=== PATIENT | female | born 1970 | race Two or more races ===

== ENCOUNTER 2018-08-27 19:37 | Emergency (ER) | payer MEDICAID, OTHER ==
--- NOTE | 2018-08-27 20:19 | EDPHY ---
General Time Seen by Provider: 08/27/18 19:59 Narrative: CLINICAL IMPRESSION: Elevated blood pressure without a diagnosis of hypertension ASSESSMENT/PLAN: 48-year-old otherwise healthy female presents to the emergency department with 3 separate elevated blood pressure readings today at a friend's house. Patient has no headache, dizziness, nausea, vomiting, chest pain, shortness of breath, or vision changes. She has never been diagnosed with hypertension in the past. EKG is reassuring with normal sinus rhythm, no acute ST or T-wave changes, reviewed with Dr. Arboleda. Lab work shows a mild renal insufficiency with a creatinine of 1.2 although unclear if this is patient's baseline or secondary to dehydration. Patient does have a half brother with renal failure status post renal transplant. I did recommend strongly that she keep a blood pressure log, follow up with her primary care in the next 24-48 hours to consider hypertensive treatments, however patient does not have clinical concerns for hypertensive urgency or emergency requiring initiation of therapy tonight. Case reviewed with Dr. Arboleda. Patient is comfortable with discharge plan. Warning signs return to ER sooner outlined and discharge. DIFFERENTIAL DX: Differential includes but not limited to hypertension, cardiac arrhythmia, renal insufficiency, renal failure, electrolyte imbalance, situational stress. ED PROCEDURES: See lab and/or imaging results below ED COURSE: Patient seen and evaluated by myself. Plan for EKG and labs. For plan to follow-up with [facility] for blood pressure management. Patient does not present with a hypertensive emergency. 8:55 P.M.: EKG reviewed with Dr. Arboleda. Normal sinus rhythm, no acute ST or T-wave changes, LVH or other abnormality to suggest changes from hypertensive emergency. Patient has mild renal insufficiency with creatinine of 1.2. Remainder of lab work reassuring. No complaints of chest pain or shortness of breath. Will plan to have her follow up with primary care. CHIEF COMPLAINT: High blood pressure HPI: 48-year-old [facility] female presents to the emergency department today with complaints of elevated blood pressure readings today on 3 separate occasions. Patient reports taking her blood pressure 3 times at a friend's house and then again at [facility] where she got readings as high as 170 systolic. Patient reports no history of hypertension. She reports she has had some increased stress recently. She was taking her Symbicort more often than normal yesterday for asthma. She reports a family history of a half brother who had renal failure requiring a kidney transplant at age 28. He is now on dialysis. She reports he did have high blood pressure at a young age. There is no other family history of cardiac disease at a young age however all of her family members have hypertension. She is followed by [facility]. She has no complaints of chest pain, shortness of breath, headache, dizziness, lightheadedness, acute vision or hearing changes. PAST MEDICAL HISTORY: Asthma See nurse/triage notes for additional history if applicable Pertinent Past Surgical History: None reported Family History: Half brother with renal failure, on dialysis, post failed kidney transplant Social History: Nonsmoker, otherwise healthy REVIEW OF SYSTEMS: All other systems negative Constitutional: No fever, no chills, appetite change. Eyes: No discharge, vision change ENT: No sore throat, congestion, ear pain. Cardiovascular: No chest pain, no palpitations. Respiratory: No cough, no shortness of breath. Gastrointestinal: No abdominal pain, no vomiting, diarrhea. Genitourinary: No hematuria, dysuria, flank pain, pelvic pain Musculoskeletal: No back pain, joint swelling, joint pain, myalgias. Skin: No rashes, color change. Neurological: No headache, dizziness, weakness. PHYSICAL EXAM: General Appearance: Alert, oriented, appropriate, cooperative, NAD, well hydrated, non-toxic appearing, hypertensive at 160 systolic, no hypoxia. HEENT: Oropharynx clear is no erythema or exudates, no tonsillar hypertrophy or asymmetry. Dentition without abnormality.] Eyes: PERRLA, no acute vision change, nystagmus, swelling, discharge, pain or photosensitivity. No papilledema. Conjunctiva pink, no pallor or injection Neck: [Supple, nontender, no lymphadenopathy, no midline pain, FROM, no meningismus, Respiratory: There are no retractions, lungs are clear to auscultation. Cardiac: Regular rate and rhythm, no murmurs or gallops. Gastrointestinal: Abdomen is soft, nontender, bowel sounds normal, no masses/ hernia, no rigidity, guarding or focal peritoneal findings. Neurological: Alert and oriented x 3, CN 2-12 grossly intact Skin: Warm, dry, no rashes, no nodules on palpation. Musculoskeletal: Extremities are symmetrical, full range of motion, no tenderness, deformity, swelling, or erythema. MEDICAL DECISION MAKING: Patient was seen independently. Secondary supervising physician at time of evaluation was Dr. Arboleda . Diagnosis: Elevated blood pressure . New, requires workup Summary: See Assessment and Plan for summary of ED visit Clinical lab tests: ordered / reviewed. Independent visualization of images, tracing, or specimens: Yes. Decision to obtain medical records or history from someone other than the patient: No Review / Summarize previous medical records: None available Discussed patient with another provider: Dr. Arboleda Patient Progress: Stable. - History Smoking Status: Never smoked - Objective Vital Signs: Initial Vital Signs Temperature (C) 36.8 C 08/27/18 19:40 Heart Rate 65 08/27/18 19:40 Respiratory Rate 20 08/27/18 19:40 Blood Pressure 175/98 H 08/27/18 19:40 O2 Sat (%) 98 08/27/18 19:40 O2 Delivery Mode Room Air Allergies/Adverse Reactions: No Known Allergies Allergy (Unverified 08/27/18 19:40) Home Medications: Medication Instructions Recorded Albuterol 08/27/18 Symbicort 160-4.5 Mcg Inh (*) 08/27/18 Laboratory Results: Laboratory Results 08/27/18 20:27 08/27/18 20:27 Departure - Departure Disposition: Home, Routine, Self-Care Clinical Impression: Elevated blood pressure reading Condition: Good Instructions: Hypertension (ED) Additional Instructions: DISCHARGE INSTRUCTIONS FROM YOUR DOCTOR Thank you for visiting our emergency department today. Please keep in mind that discharge from the emergency department does not mean that there is nothing wrong - it simply means that we have not identified an emergency condition that requires further evaluation or treatment in the hospital. You should always plan to follow up with primary care for re-evaluation of your condition in the next 2-3 days. If you have been referred to a specialist, please call as soon as possible (today or tomorrow) to schedule your follow up appointment at the appropriate time. PLEASE MAKE A FOLLOW-UP APPOINTMENT WITH HER PRIMARY CARE DOCTOR TOMORROW. YOU DID HAVE ELEVATED BLOOD PRESSURE READINGS TODAY BUT YOU DO NOT HAVE A HYPERTENSIVE EMERGENCY REQUIRING INTERVENTION TONIGHT. EKG WAS REASSURING SHOWING NO CARDIAC ARRHYTHMIA OR CHANGES TO SUGGEST HEART ATTACK. LAB WORK SHOWED VERY MILD ELEVATION IN KIDNEY FUNCTIONS WHICH WE RECOMMEND HAVING RECHECKED BY PRIMARY CARE. OTHERWISE NO ANEMIA, OR ELECTROLYTE IMBALANCE. PLEASE STICK TO A LOW-SALT DIET. CHECK HER BLOOD PRESSURE OUTSIDE OF AN EMERGENCY ROOM OR OFFICE SETTING AND KEEP A LOG FOR HER PRIMARY CARE DOCTOR. PLEASE CALL THEM FOR AN APPOINTMENT TOMORROW. PLEASE RETURN TO THE EMERGENCY DEPARTMENT FOR CHEST PAIN, SHORTNESS OF BREATH, SEVERE HEADACHE, LIGHTHEADEDNESS , DIZZINESS, VOMITING OR ANY OTHER CONCERN. People present with illnesses and injuries in different ways, and it is always possible that we have missed something. You may always return for re-evaluation if symptoms worsen or if they are not improving or if you develop new/different symptoms. Again, thank you for choosing our emergency department. We hope that you feel better. Referrals: NONE *PRIMARY CARE P,. [Primary Care Provider] - As per Instructions [facility],. [Clinic] - 1-2 days without fail
[2018-08-27 20:41] LABS: PLATELET COUNT 319 10^3/uL (150-400)
[2018-08-27 20:43] VITALS: BP 160/106
== END 2018-08-27 21:00 | disposition home or self-care (01) ==
DX: R03.0 Elevated blood-pressure reading, without diagnosis of hypertension (principal)

== ENCOUNTER 2018-08-30 19:31 | Emergency (ER) | payer OTHER ==
[2018-08-30] MEDS ORDERED: LABETALOL HCL 5 MG/ML 20 ML MDV IVP ONE (21:10)
[2018-08-30] MEDS ORDERED: hydrALAZINE 20 MG/ML VIAL IVP ONE ×2 (21:15→22:21)
--- NOTE | 2018-08-30 21:15 | EDPHY ---
H & P Time Seen by Provider: 08/30/18 20:48 HPI/ROS: HPI High blood pressure. 48-year-old female by private vehicle with her . This patient was seen in our emergency department on August 27 of this year by Tristian Monge physician assistant branch manager. Her complaint at that time was elevated blood pressure. She was otherwise asymptomatic. She had a normal EKG. Her CBC was normal. Her basic metabolic panel was unremarkable except for a mild renal insufficiency with a creatinine of 1.2. She was instructed to follow up with [facility]. She went to [facility] yesterday. She was seen by a primary care physician there. She was placed on lisinopril 20 mg daily. She took her 2nd dose of lisinopril today. She was at a friend's house who had a blood pressure machine she was taking her blood pressure which was giving her systolic readings of 180-200. She came back to the emergency department because she was concerned about this. She initially told me that she did not have any chest pain or shortness of breath or changes in vision. However, when I told her that I did not feel that her elevated blood pressure in the emergency department was something we needed to treat emergently she complained of feeling short of breath and having visual changes. She is demanding that we lower her blood pressure. I explained to her that it is not something we like to do in the emergency department because although weak and lower at for a short period of time will inevitably come back got. I told her that the appropriate treatment is for her to be on a long-term antihypertensive medication and for her to be followed by her primary care physician. Her presentation is not consistent with a hypertensive urgency or emergency. ROS: Constitutional: No fever, no chills. No weakness. Eyes: No discharge. As above. Respiratory: No cough. As above. Cardiac: No chest pain, no palpitations. Gastrointestinal: No abdominal pain, no vomiting, no diarrhea. Genitourinary: No hematuria. No dysuria or increased frequency with urination. Neurological: No headache. No focal weakness or altered sensation. Past medical history: Asthma. Social history: Nonsmoker. No alcohol. She is here with her who claims he is a physician trained and [employer]. Physical Exam: General Appearance: Alert, no distress. This patient is responding to questions appropriately and in full sentences. This patient appears well- hydrated and well-nourished. Eyes: Pupils equal and round no pallor or injection. No lid edema, erythema or injection. Respiratory: There are no retractions, lungs are clear to auscultation with good air movement bilaterally. Cardiovascular: Regular rate and rhythm. No murmur. Gastrointestinal: Abdomen is soft and nontender, no masses, bowel sounds normal. No focal tenderness at McBurney's point. No White sign. Neurological: Motor sensory function is grossly intact. Cranial nerves are normal. Gait is normal. Skin: Warm and dry, no rashes. Musculoskeletal: Neck is supple and nontender. Extremities are symmetrical. All joints range without pain or impingement. Psychiatric: No agitation. No depression. Database: EKG: Imaging: Procedures: Emergency department course: Her triage vital signs were reviewed. Her blood pressure is 198/110. However, she displays no signs or symptoms of hypertensive emergency or urgency. She and her have refused to listen to reason. When I initially told them that I did not feel her blood pressure should be lowered emergently I felt she started making up symptoms like feeling short of breath and having visual changes. After some back and forth I agreed to treat her with a low dose of hydralazine, 5 mg IV. The patient's blood pressure has remained high. 195/112 at 10:35 p.m., she has been hostile toward staff. She will receive another 5 mg of IV hydralazine. We will continue to observe her. 11:15 p.m., patient re-evaluated, blood pressure is currently 152/96. She states that she feels better. She has been up and ambulatory with a normal gait. Her neurologic Assessment is nonfocal. She feels comfortable going home with her and I feel she is safe for discharge. I discussed follow-up with her primary care physician and ongoing management of her hypertension as well as recheck of her creatinine. Return to emergency department precautions were reviewed with her. All of her questions were answered. She was discharged from the emergency department in good condition with her . Differential Diagnosis: The differential diagnosis on this patient includes but is not limited to elevated blood pressure, renal insufficiency. Hypertensive urgency, hypertensive emergency unlikely. This represents a partial list of diagnoses considered. These considerations are based on history, physical exam, past history, reassessment and diagnostic testing. Smoking Status: Never smoked Constitutional: Initial Vital Signs Temperature (C) 36.8 C 08/30/18 19:49 Heart Rate 63 08/30/18 19:49 Respiratory Rate 16 08/30/18 19:49 Blood Pressure 198/110 H 08/30/18 19:49 O2 Sat (%) 94 08/30/18 19:49 O2 Delivery Mode Room Air Allergies/Adverse Reactions: No Known Allergies Allergy (Verified 08/30/18 19:48) Home Medications: Medication Instructions Recorded Albuterol 08/27/18 Symbicort 160-4.5 Mcg Inh (*) 08/27/18 Lisinopril 08/30/18 Medical Decision Making - Data Points Medications Given: Discontinued Medications Hydralazine HCl (Apresoline) 5 mg IVP EDNOW ONE Stop: 08/30/18 21:16 Last Admin: 08/30/18 21:17 Dose: 5 mg Hydralazine HCl (Apresoline) 5 mg IVP EDNOW ONE Stop: 08/30/18 22:22 Last Admin: 08/30/18 22:33 Dose: 5 mg Labetalol HCl (Trandate Injection) 10 mg IVP EDNOW ONE Stop: 08/30/18 21:11 Last Admin: 08/30/18 21:28 Dose: Not Given Departure - Departure Disposition: Home, Routine, Self-Care Clinical Impression: Hypertension Condition: Good Instructions: Hypertension (ED) Additional Instructions: Read and follow provided instructions. Follow-up with your primary care physician at [facility] in 2-3 days for re -evaluation. Your primary care physician needs to follow your blood pressure and manage your hypertension long-term. You should have your kidney function rechecked during you're next primary care physician visit as well. The lisinopril that your primary care physician has prescribed you may not be the best medication to manage her blood pressure. Discussed alternatives with your primary care physician. Return to the emergency department for chest pain, difficulty breathing or other serious concerns. Referrals: HET[facility] VILLALBA [Other] - As per Instructions
[2018-08-30] MEDS ORDERED: hydrALAZINE 20 MG/ML VIAL ONE (21:16)
[2018-08-30 23:22] VITALS: BP 162/109
== END 2018-08-30 23:38 | disposition home or self-care (01) ==
DX: I10 Essential (primary) hypertension (principal); Z79.899 Other long term (current) drug therapy
CPT/HCPCS: 96374; J0360

== ENCOUNTER → 2018-09-15 | Outpatient (CLI) | payer OTHER | LOC: FIMAGING 13:23 ==